=== PATIENT | male | born 1955 | race Caucasian/White ===

== ENCOUNTER 2019-11-22 09:57 | Emergency (ER) | payer BC, OTHER ==
[~2019-11-22] VITALS: Ht 172.7 cm; Wt 90.7 kg
--- NOTE | 2019-11-22 09:57 | NUR ---
PT TAKEN TO ER BED 10
[2019-11-22] MEDS ORDERED: LIDOCAINE/EPI 2% 1:100000 20 ML VIAL INJ ONE (09:58)
[2019-11-22 10:01] VITALS: BP 134/74
--- NOTE | 2019-11-22 10:01 | NUR ---
Oxygen applied at 3 L per minute via NC]. 02 saturation % by pulse oximetry.
--- NOTE | 2019-11-22 10:01 | NUR ---
TAKEN TO ROOM 10 IMMEDIATELY FROM [facility]IA WC---MD CALLED TO BEDSIDE C-COLLAR APPLIED HEAD WOUND CLEANED AND MD TO SUTURE---HAD STAPLED BUT WILL REMOVE PT REMAIN AWAKE ALERT WITH FULL CLEAR SPEECH Addendum: 11/22/19 at 1114 by MATTHEW APPLIED PRESSURE DRESSING TO PARIETAL HEAD
--- NOTE | 2019-11-22 10:05 | NUR ---
64/M BIB FAMILY C/O PAIN 2/2 FALL FROM APPROX 10-12 FEET WHILE ATTEMPTING TO CLIMB TREE. PT HAS LARGE OPEN WOUND ON BACK OF HEAD, ACTIVELY BLEEDING. PT ON ASPIRIN. DR. HSIEH CALLED TO BEDSIDE IMMEDIATELY. PT C/O LEFT AND MID STERNAL CHEST PAIN 2/2 FALL. GCS 15, AOX4. EXTREMITIES WARM TO TOUCH, +CSM ALL EXTREMITIES. CAP REFILL 3 SEC. HX- HTN, DM, HLD, ARHYTHMIA (UNSPECIFIED)
[2019-11-22] MEDS ORDERED: TRANEXAMIC ACID 1,000 MG/10 ML VIAL ONE (10:14)
[2019-11-22] MEDS ORDERED: NACL 0.9% 1,000 ML IV ONE (10:18)
[2019-11-22] MEDS ORDERED: TRANEXAMIC ACID 1,000 MG/10 ML VIAL MC ONE (10:18)
[2019-11-22] MEDS ORDERED: TRANEXAMIC ACID 1,000 MG in NACL 0.9% 50 ML IV STA (10:18)
[2019-11-22 10:19] LABS: BASOPHILS # (AUTO) 0.1 K/uL (0.00-0.22); BASOPHILS % (AUTO) 0.4 % (0.0-2.0); EOSINOPHILS # (AUTO) 0.2 K/uL (0-0.4); EOSINOPHILS % (AUTO) 1.4 % (0.0-4.0); HEMATOCRIT 43.9 % (36-52); HEMOGLOBIN 14.1 g/dL (12.0-18.0); LYMPHOCYTES # (AUTO) 6.3 K/uL (2.0-11.5); MEAN CORPUSCULAR HEMOGLOBIN 30 pg (27-31); MEAN CORPUSCULAR HGB CONC 32 g/dL (33-37); MEAN CORPUSCULAR VOLUME 93.4 fL (80-94); MONOCYTES # (AUTO) 0.4 K/uL (0.8-1.0); MONOCYTES % (AUTO) 3.2 % (1.7-9.3); NEUTROPHILS # (AUTO) 5.2 K/uL (1.8-7.7); PLATELET COUNT (AUTO) 209 K/uL (140-450); RED BLOOD CELL COUNT(AUTO) 4.71 MIL/uL (4.20-6.10); RED CELL DISTRIBUTION WIDTH 14.5 % (11.6-13.7)
--- NOTE | 2019-11-22 10:21 | NUR ---
PT TAKEN TO CT ACCOMPANIED BY GAGANDEEP LOPEZ AT THIS TIME
[2019-11-22 10:30] LABS: PROTHROMBIN TIME 9.7 secs (10.8-13.4)
[2019-11-22 10:31] LABS: ALBUMIN 3.7 g/dL (3.4-5.0); ANION GAP 16.2 (8-16); CARBON DIOXIDE 23.7 mmol/L (21-32); CREATININE 1.1 mg/dL (0.6-1.3); POTASSIUM 3.9 mmol/L (3.5-5.1); TOTAL BILIRUBIN 0.5 mg/dL (0.0-1.0)
[2019-11-22] MEDS ORDERED: fentaNYL 0.05 MG/ML VIAL ONE (10:52)
[2019-11-22] MEDS ORDERED: ONDANSETRON 4 MG/2 ML VIAL ONE (10:52)
[2019-11-22] MEDS ORDERED: ONDANSETRON 4 MG/2 ML VIAL IVP ONE (10:55)
[2019-11-22] MEDS ORDERED: fentaNYL 0.05 MG/ML VIAL IVP ONE ×2 (10:55→12:05)
--- NOTE | 2019-11-22 11:00 | NUR ---
PT REMAINS ALERT GCS 15, VSS ON BEDSIDE MONITOR. FAMILY MEMBERS AT BEDSIDE.
--- NOTE | 2019-11-22 12:05 | NUR ---
REPORT GIVEN TO [facility]
--- NOTE | 2019-11-22 12:16 | NUR ---
DR HSIEH SPEAKING WITH FAMILY MEMBERS AT BEDSIDE
--- NOTE | 2019-11-22 12:20 | NUR ---
PT TAKEN BY [facility].
--- NOTE | 2019-11-22 12:22 | NUR ---
REPORT GIVEN TO BRIAN DONIS ([facility] DIRECTOR INSTRUMENTATION)
[2019-11-22 12:48] VITALS: BP 161/90
== END 2019-11-22 12:20 | disposition short-term general hospital (02) ==
LOC: MED 09:57
DX: S22.41XA Multiple fractures of ribs, right side, initial encounter for closed fracture (principal); S22.31XA Fracture of one rib, right side, initial encounter for closed fracture; S42.012A Anterior displaced fracture of sternal end of left clavicle, initial encounter for closed fracture; S01.01XA Laceration without foreign body of scalp, initial encounter; D72.829 Elevated white blood cell count, unspecified; E11.65 Type 2 diabetes mellitus with hyperglycemia; I10 Essential (primary) hypertension; W14.XXXA Fall from tree, initial encounter; Y93.89 Activity, other specified; Y92.89 Other specified places as the place of occurrence of the external cause; Y99.8 Other external cause status
CPT/HCPCS: 12002; 36415; 70450; 71270; 72125; 74178; 80053; 84484; 85025; 85610; 85730; 86886; 86900; 86901; 86920; 90471; 90715; 96365; 96375; 99291; J2001; J2405; J3010; J3490; J7030; Q9967; 99284

== ENCOUNTER 2019-11-28 12:40 | Emergency (ER) | payer BC, OTHER ==
[~2019-11-28] VITALS: Ht 167.6 cm; Wt 91.2 kg
[2019-11-28 13:19] VITALS: BP 100/67
--- NOTE | 2019-11-28 13:30 | NUR ---
PT AMBULATED TO ER BED 12
--- NOTE | 2019-11-28 13:37 | NUR ---
PA ROBERSON EVALUATING PT AT BEDSIDE
[2019-11-28] MEDS ORDERED: FAMOTIDINE 20 MG TAB PO ONE (13:40)
[2019-11-28] MEDS ORDERED: diphenhydrAMINE 50 MG CAP PO ONE (13:40)
[2019-11-28] MEDS ORDERED: predniSONE 20 MG TAB PO ONE (13:40)
--- NOTE | 2019-11-28 13:47 | NUR ---
C/O GENERALIZED PRURITIC RASHES X LAST NIGHT. NO NEW MEDS, FOODS, PRODUCTS, ETC. BLANCHABLE RASH NOTED ON ABD, BACK, AND NECK. DENIES PAIN, N/V/D MED HX; HTN, DM, HIGH CHOLESTEROL, FRACTURE L CLAVICLE , FRACTURE R RIBS
--- NOTE | 2019-11-28 14:19 | NUR ---
ZARA ROBERSON SPEAKING WITH PATIENT/FAMILY AT BEDSIDE. ZARA ROBERSON AWARE OF ACCUCHECK [id number].
--- NOTE | 2019-11-28 14:46 | NUR ---
Patient discharged with v/s stable. Written and verbal after care instructions given and explained. Patient alert, oriented and verbalized understanding of instructions. Ambulatory with steady gait. All questions addressed prior to discharge. ID band removed. Patient advised to follow up with PMD. Rx of PREDNISONE AND LORATADINE given. Patient educated on indication of medication including possible reaction and side effects. Opportunity to ask questions provided and answered.
[2019-11-28 14:47] VITALS: BP 106/61
== END 2019-11-28 14:46 | disposition home or self-care (01) ==
LOC: MED 12:40
DX: R21 Rash and other nonspecific skin eruption (principal); L29.9 Pruritus, unspecified; E11.9 Type 2 diabetes mellitus without complications; I10 Essential (primary) hypertension
CPT/HCPCS: 82948; 99284; J7512; Q0163